=== PATIENT | male | born 1965 | race Two or more races ===

== ENCOUNTER 2017-06-29 21:45 | Emergency (ER) | payer BC ==
[2017-06-29 23:06] LABS: BASOPHILS 0.8 % (0-2); EOSINOPHILS 3.2 % (0-7); HEMATOCRIT 40.5 % (42.0-54.0); HEMOGLOBIN 13.2 g/dL (13.5-17.5); IMMATURE GRANULOCYTES 0.5 % (0-5); LYMPHOCYTES 21.3 % (15-50); MCH 26.8 pg (26.0-34.0); MCHC 32.6 g/dL (31.0-37.0); MCV 82.3 fL (80.0-100.0); MEAN PLATELET VOLUME 8.9 fL (7.4-10.4); MONOCYTES 10.3 % (2-11); NEUTROPHILS 63.9 % (40-80); PLATELET COUNT 207 10x3/uL (130-400); RBC 4.92 10x6/uL (4.20-6.10); RDW 15.1 % (11.5-14.5)
[2017-06-29 23:24] LABS: ALBUMIN 3.8 g/dL (3.4-5.0); ALKALINE PHOSPHATASE 112 U/L (46-116); ALT (SGPT) 125 U/L (10-68); BILIRUBIN - TOTAL 0.35 mg/dL (0.2-1.3); CALC OSMOLALITY 272 mosm/kg (275-300); CALCIUM 9.2 mg/dL (8.5-10.1); CARBON DIOXIDE 27.6 mmol/L (21.0-32.0); CHLORIDE - SERUM 98 mmol/L (98-107); CREATININE - SERUM 0.9 mg/dL (0.6-1.3); GLUCOSE 125 mg/dL (74-106); POTASSIUM - SERUM 3.6 mmol/L (3.5-5.1); PROTEIN - SERUM 7.9 g/dL (6.4-8.2); SODIUM 136 mmol/L (136-145); UREA NITROGEN 12 mg/dL (7-18); eGFR NON AFRICAN AMERICAN > 90 mL/min (90-120)
[2017-06-29 23:28] LABS: CREATINE KINASE 167 UL (21-232)
[2017-06-29 23:29] LABS: TROPONIN-I < 0.017 ng/mL (0.000-0.060)
== END 2017-06-30 | disposition home or self-care (01) ==
LOC: D.ER 21:45
PROVIDERS: Emergency Medicine
DX: I10 Essential (primary) hypertension (principal); K21.9 Gastro-esophageal reflux disease without esophagitis

== ENCOUNTER → 2017-08-20 09:06 | Outpatient (CLI) | payer BC ==
--- NOTE | ~2017-08-20 | EC ---
PATIENT:SOLEDAD MARTINEZ DATE OF SERVICE: 08/20/17 SEX: M MEDICAL RECORD: [id number] DATE OF : 67 [facility] AGE OF PATIENT: 51 ADMISSION DATE: 08/20/17 REFERRING PHYSICIAN: INTERPRETING PHYSICIAN: FAIZA MANRIQUEZ MD ECHOCARDIOGRAM REPORT ECHO CHARGES 4 ECHO COMPLETE CLINICAL DIAGNOSIS: CHEST PAIN,PALPITATIONS,HTN ECHOCARDIOGRAPHIC MEASUREMENTS (adult normal given) AC root (d.<3.7cm) 3.0 cm LV Septum d (<1.2 cm> 1.3 cm Valve Excursion 1.5 cm LV Septum (systole) 1.7 cm Left Atria (s.<4.0cm> 3.5 cm LVPW d(<1.2cm) 1.3 cm RV (d.<2.3cm) 4.1 cm LVPW (sytole) 1.8 cm LV diastole(<5.6CM) 5.3 cm MV E-F(>70mm/sec) cm LV systole 3.4 cm LVOT Diameter 2.1 cm MV exc.(>10mm) cm Est.ejection fraction (50-75%) % Pericardial Effusion N DOPPLER: LVIT cm/sec A 84.0 cm/sec E 71.0 cm/sec LA cm/sec RVSP 41 mmHg LVOT 131 cm/sec AOP1/2T m/s Asc. Ao 174 cm/sec RVOT 106 cm/sec RA cm/sec PA 130 cm/sec AV Gradient Peak mmHg AV Mean 12.13mmHg AV Area 6.45 cm MV Gradient Peak 2.9 mmHg MV Mean 4.26 mmHg MV Area 2.05 cm COMMENTS: Lapel Padder: Eulalio LAZARO Voice Pathologist: Maryanne Manriquez TAPE# PACS DATE OF SERVICE: 08/20/2017 PROCEDURE: Transthoracic echocardiogram. FINDINGS: 1. Left ventricle shows evidence of mild concentric left ventricular hypertrophy, ejection fraction 60%. Inflow characteristics show evidence of diastolic dysfunction. 2. The right ventricle shows evidence of mild dilatation with right ventricular hypertrophy. ECHOCARDIOGRAM REPORT [id number] SOLEDAD MARTINEZ 3. Left atrium is normal size, normal function. 4. The aortic valve, although well visualized, appears to be functioning normally. 5. The mitral valve appears to be structurally normal without any significant evidence of mitral regurgitation. 6. There is no pericardial effusion. 7. The pulmonic valve is normal. 8. The right atrium appears to be mildly dilated with normal function. 9. There is no pericardial effusion. IMPRESSION: The patient has evidence of hypertensive heart disease with right ventricular hypertrophy associated with mildly elevated right ventricular systolic pressures with pulmonary pressures in the 40 mmHg range. TRANSINT:[id number] Voice Confirmation ID: [id number] DOCUMENT ID: [id number] FAIZA MANRIQUEZ MD at 1111 CC: [id number] DICTATION DATE: 08/21/17 08 REROLLING MACHINE OPERATOR: 08/21/17 0830 DEP CLI 08/20/17 [facility] [address] [place] [address]
== END | disposition home or self-care (01) ==
LOC: D.ECHO 08-06 13:00
DX: R07.9 Chest pain, unspecified (principal); R00.2 Palpitations

== ENCOUNTER 2017-08-26 06:39 | Outpatient (CLI) | payer BC ==
[~2017-08-26] VITALS: Ht 165.1 cm; Wt 82.7 kg
--- NOTE | ~2017-08-26 | HEMODYNAMI ---
PATIENT:SOLEDAD MARTINEZ MEDICAL RECORD: [id number] : 67 LOCATION:[facility] ADMISSION DATE: 08/26/17 Generatedon:08/26/201710:04 Patient name: SOLEDAD MARTINEZ Patient #: [id number] : 1965 Date of study: 08/26/2017 Page: Of Hemodynamic Procedure Report Patient Data Patient Demographics Procedure consent was obtained First Name: SOLEDAD Gender: Male Last Name: JUAN : 1965 Middle Initial: JULIO Age: 51 year(s) Patient #: [id number] Race: Other SSN: [id number] Additional ID: [id number] Contact details [address]: [address] [place] [address] State: [place] City: [place] Zip code: [address] Admission Admission Data Admission Date: 08/26/2017 Admission Time: 6:39 Arrival Date: 08/26/2017 Arrival Time: 6:39 Admit Source: Other Insurance Payor: Private health insurance Height (in.): 67 BSA: 1.95 (m2) Height (cm.): 170.18 BMI: 28.82 (kg/m2) Weight (lbs.): 184 Weight (kg.): 83.46 Lab Results Lab Result Date: 08/26/2017 Lab Result Time: 0:00 Biochemistry Name Units Result Min Max BUN mg/dl 11 --(-*--)-- 7 18 Creatinine mg/dl 0.9 --(-*--)-- 0.6 1.3 CBC Name Units Result Min Max Hemoglobin g/dl 13.1 -*(----)-- 13.5 17.5 Procedure Procedure Types Cath Procedure Diagnostic Procedure [facility] w/Coronaries Miscellaneous Procedures Moderate Sedation up to 15 minutes Procedure Description Procedure Date Procedure Date: 08/26/2017 Procedure Start Time: 9:31 Procedure End Time: 10:02 Procedure Staff Name Function Gorge Murphy MD Performing Physician Tori Coronel RT Monitor Fiona Fofana RN Nurse Tanika Roper RT Scrub Procedure Data Cath Procedure Fluoroscopy Diagnostic fluoroscopy Total fluoroscopy Time: time: 11.8 min 11.8 min Diagnostic fluoroscopy Total fluoroscopy dose: 959 dose: 959 mGy mGy Contrast Material Contrast Material Type Amount (ml) Isovue 300 70 Entry Location Entry Primary Successful Side Size Upsize Upsize Entry Closure [place] ccessful Closure Location (Fr) 1 (Fr) 2 (Fr) Remarks Device Remarks Radial Right 6 Fr Mechanical artery Short Compression Estimated blood loss: 5 ml Diagnostic catheters Device Type Used For End Catheter Placement DIAGNOSTIC [place] 110cm 5 Multi-vessel Fr catheter ([id number]) Angiography DIAGNOSTIC René 110cm Multi-vessel 5Fr catheter (672559) Angiography DIAGNOSTIC JL 3.5 5Fr Left Coronary catheter ([id number]) Angiography Procedure Complications No complications Procedure Medications Medication Administration Route Dosage Oxygen NC 2 l/min Lidocaine 2% added to field 20 Heparin Flush Bag added to field 2 bags (1000units/500ml NS) 0.9% NaCl I.V. 100 ml/hr Radial Cocktail I.A. 1 syringe (Verapomil 2mg/Nitro 400mcg/Heparin 1500units) Versed I.V. 1 mg Fentanyl I.V. 25 mcg Hemodynamics Rest BSA: 1.95 (m2) O2 Consumption: Estimated: 243.13 (ml/min) O2 Consumption indexed : Estimated:124.68 (ml/min/m) Heart Rate: 83 (bpm) Pressure Samples Time Site Value (mmHg) Purpose Heart Use Rate(bpm) 9:40 LV 64/-35,-18 EDP 81 Gradients Valve Time Site Site Mean SEP/DFP Peak To Heart Use 1 2 (mmHg) (sec/min) Peak Rate (mmHg) (bpm) Aortic 9:40 LV AO 80 Snapshots Pre Cath Intra NCS Post Cath Vital Signs Time Heart Resp SPO2 etCO2 NIBP (mmHg) Rhythm Pain Sedation Rate (ipm) (%) (mmHg) Status Level (bpm) 9:25:51 79 19 99 38.4 143/93(111) NSR 0 (11) 10(A) , No pain 9:30:03 80 15 98 36.9 135/79(101) NSR 0 (11) 10(A) , No pain 9:34:14 76 20 98 35.4 125/84(104) NSR 0 (11) 10(A) , No pain 9:38:24 76 16 96 34.6 101/62(74) NSR 0 (11) 10(A) , No pain 9:42:36 80 15 97 35.4 113/71(87) NSR 0 (11) 10(A) , No pain 9:46:44 78 22 96 34.6 112/73(89) NSR 0 (11) 10(A) , No pain 9:50:52 80 16 97 34.6 116/71(87) NSR 0 (11) 10(A) , No pain 9:55:02 78 15 97 36.2 114/68(88) NSR 0 (11) 10(A) , No pain 9:59:10 77 14 98 33.9 121/73(95) NSR 0 (11) 10(A) , No pain Medications Time Medication Route Dose Verified Delivered Reason Notes E ffectiveness by by 9:24:17 Oxygen NC 2 l/min Gorge Buffie used for Jeffrey Fofana RN procedure 9:24:24 Lidocaine 2% added 20ml Gorge Gorge for local to vial Jeffrey Murphy MD anesthetic field DAVSI 9:24:30 Heparin Flush added 2 bags Gorge Gorge used for Bag to Jeffrey Murphy MD procedure (1000units/500ml field DAVIS NS) 9:24:38 0.9% NaCl I.V. 100 Gorge Buffie Per ml/hr Jeffrey Fofana RN physician 9:30:45 Versed I.V. 1 mg Gorge Buffie for sedation Jeffrey Fofana RN, MD 9:30:52 Fentanyl I.V. 25 mcg Gorge Buffie for sedation Jeffrey Fofana RN, MD 9:35:12 Radial Cocktail I.A. 1 Gorge Gorge for (Verapomil syringe Jeffrey Murphy MD vasodilation 2mg/Nitro 400mcg/Heparin 1500units) Procedure Log Time Note 9:03:55 Informed consent obtained and on chart 9:04:03 Diagnostic Cath Status : Elective 9:04:30 Fiona Fofana RN sent for patient. Start room use. 9:04:31 Time tracking: Regular hours 9:04:36 Plan of Care:Hemodynamics will remain stable., Cardiac rhythm will remain stable., Comfort level will be maintained., Respiratory function will remain adequate., Patient/ family verbilizes understanding of procedure., Procedure tolerated without complication., Recovers from procedure without complications.. 9:06:07 Admit Source: Other 9::09 Arrival Date: 08/26/2017 6:39:00 AM 9:06:17 Insurance Payor : Private health insurance 9:06:38 Patient Height : 67 inches 9:06:43 Patient Weight : 184 lbs 9::22 Lab Result : BUN 11 mg/dl 9:: Lab Result : Hemoglobin 13.1 g/dl 9:: Lab Result : Creatinine 0.9 mg/dl 9:08:28 Patient received from Pre/Post Procedure Room to CCL 2 Alert and oriented. Tansferred to table in Supine position. 9:08:29 Warm blankets applied, and kory hugger turned on for patient comfort. 9:08:30 Correct patient and procedure confirmed by team. 9:08:30 ECG and BP/O2 sat monitors applied to patient. 9:24:17 Oxygen 2 l/min NC was administered by Fiona Fofana RN; used for procedure; 9:24:24 Lidocaine 2% 20ml vial added to field was administered by Gorge Murphy MD; for local anesthetic; 9:24:30 Heparin Flush Bag (1000units/500ml NS) 2 bags added to field was administered by Gorge Murphy MD; used for procedure; 9:24:38 0.9% NaCl 100 ml/hr I.V. was administered by Fiona Fofana RN; Per physician; 9:24:52 Vital chart was started 9:26:01 Baseline sample Acquired. 9:26:04 Rhythm: sinus rhythm 9:26:05 Full Disclosure recording started 9:27:31 H&P Date Dictated: 08/07/2017 Within 30 days and on chart., H&P Addendum completed by physician on day of procedure. (MUST COMPLETE FOR ALL OUTPATIENTS). 9:27:32 Pre-procedure instructions explained to patient. 9:27:32 Pre-op teaching completed and patient verbalized understanding. 9:27:34 Family in waiting room. 9:27:38 Patient NPO since Breakfast. 9:27:44 Is the patient allergic to Iodine/contrast media? No. 9:27:45 Was the patient premedicated? No 9:27:48 Is patient on blood thinner?Yes 9:27:50 ACC The patient was administered the following blood thiners within the last 24 hours: ACCPlavix 9:27:53 Patient diabetic? No. 9:27:55 Previous problem with sedation/anesthesia? No ? 9:27:57 Snore? Yes 9:27:58 Sleep apnea? No 9:27:59 Deviated septum? No 9:27:59 Opens mouth fully? Yes 9:28:00 Sticks out tongue? Yes 9:28:02 Airway obstruction? No ? 9:28:05 Dentures? No ? 9:28:08 Pre procedure: right dorsailis pedis pulse 2+ Normal; easily identifiable; not easily obliterated 9:28:10 Pre procedure: left dorsailis pedis pulse 2+ Normal; easily identifiable; not easily obliterated 9:28:12 Patient pain scale 0/10 ?. 9:28:19 IV patent on arrival in left forearm with 0.9% NaCl at O. 9:28:21 Lab results completed and on chart. 9:28:26 Right Radial & Right Groin area was prepped with chlora-prep and draped in sterile fashion 9:28:27 Alarms reviewed by R. N. 9:28:27 Sharps counted by scrub and verified by R.N. 9:28:29 Physician arrived 9:28:29 --------ALL STOP TIME OUT------ 9:28:30 Final Timeout: patient, procedure, and site verified with staff and physician. All members of the team are in agreement. 9:28:32 Right Radial & Right Groin site verified by team. 9:28:35 Physical assessment completed. ASA score P 2 - A patient with mild systemic disease as per Gorge Murphy MD. 9:28:39 Sedation plan: IV Moderate Sedation Medication:Versed, Fentanyl 9:29:52 Use device set Radial Dx or PCI 9:29:54 ACIST Syringe (59543) opened to sterile field. 9:29:55 Medline Cath Pack ([id number]) opened to sterile field. 9:29:57 Bag Decanter (2002S) opened to sterile field. 9:29:57 SHEATH 6FR Slender ([id number]) opened to sterile field. 9:29:58 DIAGNOSTIC WIRE .035 260cm J wire (771935) opened to sterile field. 9:29:58 ACIST Hand Control (48830) opened to sterile field. 9:29:59 ACIST Manifold (09696) opened to sterile field. 9:29:59 Tegaderm 4 x 4 (1626W) opened to sterile field. 9:30:15 Procedure started. 9:30:45 Versed 1 mg I.V. was administered by Fiona Fofana RN; for sedation; 9:30:52 Fentanyl 25 mcg I.V. was administered by Fiona Fofana RN; for sedation; 9:31:06 Local anesthetic to right radial artery with Lidocaine 2% by Gorge Murphy MD.INITIAL ACCESS ONLY 9:32:10 MBrace Wrist Support ([id number]) opened to sterile field. 9:34:24 A 6 Fr Short sheath was inserted into the Right Radial artery 9:35:10 A DIAGNOSTIC [place] 110cm 5 Fr catheter (398412) was advanced over the wire and used for Multi-vessel Angiography. 9:35:12 Radial Cocktail (Verapomil 2mg/Nitro 400mcg/Heparin 1500units) 1 syringe I.A. was administered by Gorge Murphy MD; for vasodilation; 9:40:25 LV hemodynamics recorded. 9:40:47 LV gram done using ARGUETA 9:40:49 Injector settings: Ml/sec: 5, Volume: 15, 9:40:56 EF : 60 % 9:44:02 Catheter removed. 9:44:37 A DIAGNOSTIC René 110cm 5Fr catheter (119012) was advanced over the wire and used for Multi-vessel Angiography. 9:46:37 RCA angiography performed. 9:46:40 Injector settings: Ml/sec: 3, Volume: 6, 9:49:54 Catheter removed. 9:50:05 GUIDE 6FR XBLAD 3.5 catheter ([id number]) opened to sterile field. 9:51:42 Guide Catheter removed. unable to cannulate vessel. 9:51:48 Catheter removed. 9:52:22 A DIAGNOSTIC JL 3.5 5Fr catheter (589755H) was advanced over the wire and used for Left Coronary Angiography. 9:53:54 LCA angiography performed. 9:53:57 Injector settings: Ml/sec: 3, Volume: 6, 9:57:01 Catheter removed. 9:57:38 TR BAND Standard ([id number]) opened to sterile field. 9:58:16 Sheath removed intact; hemostasis achieved with Mechanical Compression to the Right Radial artery. 9:58:17 Procedure ended.(Physican Out) 9:58:52 Fluoroscopy time 11.80 minutes. 9:58:56 Fluoroscopy dose: 959 mGy 9:58:56 Flurop Dose total: 959 9:59:00 Contrast amount:Isovue 300 70ml. 9:59:02 Sharps counted by scrub and verified by R.N. 9:59:03 Insertion/operative site no bleeding no hematoma. 9:59:11 Post right radial artery:stable 9:59:12 Post Procedure Pulses reassessed and unchanged 9:59:15 Post procedure rhythm: unchanged. 9:59:17 Estimated blood loss: 5 ml 9:59:18 Post procedure instruction explained to patient.Patient verbalizes understanding. 9:59:18 Patient needs reinforcement of post procedure teaching. 9:59:55 Procedure type changed to Cath procedure, Diagnostic procedure, LHC, LHC w/Coronaries, Miscellaneous Procedures, Moderate Sedation up to 15 minutes 10:00:03 Procedure and supply charges have been captured, reviewed, submitted and are correct. 10:00:23 Procedure Complication : No complications 10:02:24 Vital chart was stopped 10:02:40 See physician's report for complete and final results. 10:02:47 Report given to Pre/Post Procedure Room. 10:02:50 Patient transfered to Pre/Post Procedure Room with Stretcher. 10:02:52 Procedure ended. 10:02:52 Full Disclosure recording stopped 10:03:02 End room use (Document Last) Device Usage Item Name Manufacture Quantity Catalog Hospital Part Current Minima l Lot# / Number Charge Number Stock Stock Serial# Code ACIST Acist 1 10528 691610 791505 554277 20 Syringe SocStock (83773) Systems Inc Medline Cath Cardinal 1 [id number] 174189 55359 936316 5 Pack Health ([id number]) Bag Decanter Microtek 1 154601 42965 851570 5 () Medical Inc. SHEATH 6FR Terumo 1 [id number] 816207 923192 634319 40 Slender ([id number]) DIAGNOSTIC [facility] M[place] 1 227455 172607 493580 266304 30 WIRE .035 260cm J wire (392651) ACIST Hand Acist 1 69636 183780 817034 038273 5 Control Medical (07722) Systems Inc ACIST Acist 1 78650 031050 493713 488762 5 Manifold Medical (16037) Systems Inc Tegaderm 4 x 3M 1 1626W 546760 970524 255479 5 4 (1626W) MBrace Wrist Advanced 1 140-0250-00 857394 77928 900818 5 Support Vascular ([id number]) Dynamics DIAGNOSTIC Terumo 1 40-5013 908088 667681 775201 5 [place] 110cm 5 Fr catheter (682156) DIAGNOSTIC Terumo 1 40-5023 773173 778796 461128 5 René 110cm 5Fr catheter (918629) GUIDE 6FR Cardinal 1 [id number] 341925 463240 008663 10 XBLAD 3.5 Health catheter (50339446) DIAGNOSTIC Cardinal 1 130710L 909958 251951 750909 5 JL 3.5 5Fr Health catheter (305799J) TR BAND Terumo 1 [id number] 039787 689590 528766 40 Standard ([id number]) Signature Audit [place] Stage Time Signature Unsigned Intra-Procedure 08/26/2017 Tori Coronel 10:04:11 AM RT(R) Signatures Monitor : Tori Coronel RT Signature : Date : Time : [facility] [address] [place] [address]
[2017-08-26] MEDS ORDERED: BAYER CHEWABLE81 MG PO (06:47)
[2017-08-26] MEDS ORDERED: METOPROLOL TART50 MG PO (06:49)
[2017-08-26] MEDS ORDERED: PRILOSEC10 M1 PO (06:50)
[2017-08-26 07:05] VITALS: BP 143/83; Ht 165.1 cm; Wt 82.7 kg
[2017-08-26 07:20] LABS: BASOPHILS 1.2 % (0-2); EOSINOPHILS 4.8 % (0-7); HEMATOCRIT 41.4 % (42.0-54.0); HEMOGLOBIN 13.1 g/dL (13.5-17.5); IMMATURE GRANULOCYTES 0.4 % (0-5); LYMPHOCYTES 39.3 % (15-50); MCH 26.8 pg (26.0-34.0); MCHC 31.6 g/dL (31.0-37.0); MCV 84.7 fL (80.0-100.0); MEAN PLATELET VOLUME 9.1 fL (7.4-10.4); MONOCYTES 9.4 % (2-11); NEUTROPHILS 44.9 % (40-80); RBC 4.89 10x6/uL (4.20-6.10); RDW 15.8 % (11.5-14.5); WBC 7.3 10x3/uL (4.8-10.8)
[2017-08-26 07:21] LABS: PLATELET COUNT 267 10x3/uL (130-400)
[2017-08-26 07:39] LABS: CALC OSMOLALITY 277 mosm/kg (275-300); CARBON DIOXIDE 27.8 mmol/L (21.0-32.0); CHLORIDE - SERUM 102 mmol/L (98-107); CREATININE - SERUM 0.9 mg/dL (0.6-1.3); GLUCOSE 115 mg/dL (74-106); POTASSIUM - SERUM 4.5 mmol/L (3.5-5.1); SODIUM 139 mmol/L (136-145); UREA NITROGEN 11 mg/dL (7-18); eGFR NON AFRICAN AMERICAN > 90 mL/min (90-120)
== END 2017-08-26 12:01 | disposition home or self-care (01) ==
LOC: D.CATH 06:39
PROVIDERS: Internal Medicine Cardiovascular Disease
DX: R07.9 Chest pain, unspecified (principal); R94.39 Abnormal result of other cardiovascular function study; I10 Essential (primary) hypertension; R00.2 Palpitations; Z01.812 Encounter for preprocedural laboratory examination

== ENCOUNTER → 2019-11-10 10:30 | Outpatient (CLI) | payer BC ==
[2017-08-26 07:05] VITALS: BMI 30.3
[~2019-11-10 10:30] MED LIST: BAYER CHEWABLE81 MG PO; METOPROLOL TART50 MG PO; PRILOSEC10 M1 PO
--- NOTE | 2019-11-11 08:24 | EC ---
PATIENT:SOLEDAD MARTINEZ DATE OF SERVICE: 11/10/19 SEX: M MEDICAL RECORD: [id number] DATE OF : 67 LOCATION:D[facility] AGE OF PATIENT: 53 ADMISSION DATE: 11/10/19 REFERRING PHYSICIAN: INTERPRETING PHYSICIAN: LEE ANN MIGUEL MD ECHOCARDIOGRAM REPORT ECHO CHARGES 4 ECHO COMPLETE Date: 11/10/19 CLINICAL DIAGNOSIS: MURMUR/MORALES H/O HTN ECHOCARDIOGRAPHIC MEASUREMENTS (adult normal given) AC root (d.<3.7cm) 3.2 cm LV Septum d (<1.2 cm> 1.1 cm Valve Excursion 1.9 cm LV Septum (systole) 1.8 cm Left Atria (s.<4.0cm> 4.8 cm LVPW d(<1.2cm) 0.9 cm RV (d.<2.3cm) 3.0 cm LVPW (sytole) 1.4 cm LV diastole(<5.6CM) 5.9 cm MV E-F(>70mm/sec) cm LV systole 4.3 cm LVOT Diameter 2.1 cm MV exc.(>10mm) cm Est.ejection fraction (50-75%) % DOPPLER: LVIT cm/sec A 52.0 cm/sec E 107 cm/sec LA cm/sec RVSP 39.0 mmHg LVOT 120 cm/sec AOP1/2T m/s Asc. Ao 145 cm/sec RVOT 67.0 cm/sec RA cm/sec PA 98.0 cm/sec AV Gradient Peak 8.4 mmHg AV Mean 4.2 mmHg AV Area 2.6 cm MV Gradient Peak 5.0 mmHg MV Mean 2.0 mmHg MV Area cm COMMENTS: OP - HC Supplier Manager: 1 AURA YAMINI Mortgage Clerk: 3 Dr. Dillard TAPE# PACS Pericardial Effusion N DATE OF SERVICE: Adequate 2D, color flow imaging, spectral Doppler, and M-mode. No LVH. LV internal dimensions are normal. Wall motion is normal. EF is greater than or equal to 55%. Aortic valve is tricuspid. No evidence of stenosis by Doppler interrogation. Left atrium is dilated at 4.8 cm. Mitral valve shows no prolapse. Mild MR. Right-sided chambers are grossly normal. Trace TR. ECHOCARDIOGRAM REPORT [id number] SOLEDAD MARTINEZ TRANSINT:[id number] Voice Confirmation ID: [id number] DOCUMENT ID: [id number] LEE ANN MIGUEL MD at 0824 CC: [id number] DICTATION DATE: 11/10/19 150 [employer] TECHNICIAN: 11/10/19 2158 [facility] CLI 11/10/19 [place] [id number] [place] [id number]
== END | disposition home or self-care (01) ==
LOC: D.HCCECHO 10:30
PROVIDERS: ATTEND Internal Medicine Interventional Cardiology
DX: R01.1 Cardiac murmur, unspecified (principal)